=== PATIENT | female | born 1980 | race Caucasian/White ===

== ENCOUNTER 2021-10-01 19:38 | Emergency (ER) | payer BC ==
[~2021-10-01] VITALS: Ht 162.6 cm; Wt 81.6 kg
[2021-10-01] MEDS ORDERED: KETOROLAC TROMETHAMINE 30 MG/ML VIAL IV STA (20:44)
[2021-10-01] MEDS ORDERED: METOCLOPRAMIDE HCL 10 MG/2ML VIAL IV ONE (20:45)
[2021-10-01] MEDS ORDERED: SODIUM CHLORIDE 0.9% 1000ML 1,000 ML IV SCH (20:45)
[2021-10-01] MEDS ORDERED: DIPHENHYDRAMINE HCL 25 MG CAP PO ONE (20:45)
== END 2021-10-01 22:38 | disposition home or self-care (01) ==
LOC: ER 20:06
DX: G43.909 Migraine, unspecified, not intractable, without status migrainosus (principal); J45.909 Unspecified asthma, uncomplicated
CPT/HCPCS: 99284; J1885; J2765; J7030